=== PATIENT | male | born 2000 | race Caucasian/White ===

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

== ENCOUNTER 2019-01-03 19:29 | Emergency (ER) | payer SELFPAY ==
[~2019-01-03] VITALS: Ht 401.3 cm; Wt 74.8 kg
[~2019-01-03 19:29] MED LIST changes: +CLINDAMYCIN HC300 MG PO
== END 2019-01-03 20:50 | disposition home or self-care (01) ==
LOC: ED 19:29
DX: S62.314A Displaced fracture of base of fourth metacarpal bone, right hand, initial encounter for closed fracture (principal); F17.200 Nicotine dependence, unspecified, uncomplicated; Z79.2 Long term (current) use of antibiotics; Z79.899 Other long term (current) drug therapy; W22.01XA Walked into wall, initial encounter; Y93.89 Activity, other specified; Y92.89 Other specified places as the place of occurrence of the external cause; Y99.8 Other external cause status

== ENCOUNTER 2020-05-04 20:46 | Emergency (ER) | payer SELFPAY ==
[~2020-05-04] VITALS: Ht 177.8 cm; Wt 72.6 kg
[2020-05-04] MEDS ORDERED: DOXYCYCLINE HY100 M3 PO (21:18)
== END 2020-05-04 21:47 | disposition home or self-care (01) ==
LOC: ED 20:46
DX: N44.2 Benign cyst of testis (principal); Z79.899 Other long term (current) drug therapy

== ENCOUNTER 2022-04-11 14:21 | Emergency (ER) | payer OTHER ==
[~2022-04-11] VITALS: Wt 72.6 kg
[~2022-04-11 14:21] MED LIST changes: +DOXYCYCLINE HY100 M3 PO
== END 2022-04-11 14:49 | disposition home or self-care (01) ==
LOC: ED 14:21
DX: M54.6 Pain in thoracic spine (principal)

== ENCOUNTER 2022-09-07 19:01 | Emergency (ER) | payer MEDICAID, OTHER ==
[~2022-09-07] VITALS: Ht 175.2 cm; Wt 74.8 kg
[2022-09-07] MEDS ORDERED: BENADRYL ALLERG25 M5 PO (21:36)
[2022-09-07] MEDS ORDERED: PREDNISONE20 M1 PO (21:36)
[2022-09-07] MEDS ORDERED: EPIPEN 2-P0.3 MG/0.3 IJ (21:37)
== END 2022-09-07 22:12 | disposition home or self-care (01) ==
LOC: ED 19:01
DX: T63.441A Toxic effect of venom of bees, accidental (unintentional), initial encounter (principal); F17.200 Nicotine dependence, unspecified, uncomplicated; Y92.89 Other specified places as the place of occurrence of the external cause

== ENCOUNTER 2023-05-03 00:31 | Emergency (ER) | payer OTHER ==
[~2023-05-03] VITALS: Ht 177.8 cm; Wt 79.4 kg
[~2023-05-03 00:31] MED LIST changes: +BENADRYL ALLERG25 M5 PO; +EPIPEN 2-P0.3 MG/0.3 IJ; +PREDNISONE20 M1 PO
[2023-05-03] MEDS ORDERED: AMOX-CLAV 875-1 EACH PO (02:19)
== END 2023-05-03 02:22 | disposition home or self-care (01) ==
LOC: ED 00:31
DX: K02.9 Dental caries, unspecified (principal); J02.9 Acute pharyngitis, unspecified; F90.9 Attention-deficit hyperactivity disorder, unspecified type

== ENCOUNTER 2023-07-26 23:18 | Emergency (ER) | payer OTHER ==
[~2023-07-26] VITALS: Ht 172.7 cm; Wt 77.1 kg
[~2023-07-26 23:18] MED LIST changes: +AMOX-CLAV 875-1 EACH PO
== END 2023-07-27 01:15 | disposition home or self-care (01) ==
LOC: ED 23:18
DX: S93.401A Sprain of unspecified ligament of right ankle, initial encounter (principal); F90.9 Attention-deficit hyperactivity disorder, unspecified type; W22.8XXA Striking against or struck by other objects, initial encounter; Y93.89 Activity, other specified; Y92.89 Other specified places as the place of occurrence of the external cause; Y99.8 Other external cause status

== ENCOUNTER 2025-10-03 18:34 | Emergency (ER) | payer SELFPAY ==
[~2025-10-03] VITALS: Ht 177.8 cm; Wt 77.1 kg
[2025-10-03] MEDS ORDERED: IBU800 M1 PO (19:31)
[2025-10-03] MEDS ORDERED: PENICILLIN VK500 MG PO (19:31)
[2025-10-03] MEDS ORDERED: IBUPROFEN 600 MG TAB PO ONE (19:35)
[2025-10-03] MEDS ORDERED: PENICILLIN V POTASSIUM 500 MG TAB PO ONE (19:35)
[2025-10-03] MEDS ORDERED: Acetaminophen/Hydrocodone 5 MG/325 MG TABLET PO ONE (19:35)
== END 2025-10-03 19:51 | disposition home or self-care (01) ==
LOC: ED 18:34
DX: K08.89 Other specified disorders of teeth and supporting structures (principal)